=== PATIENT | female | born 1940 | race Caucasian/White ===

== ENCOUNTER 2018-01-01 08:15 | Emergency (ER) | payer MEDICARE, BC ==
--- NOTE | 2018-01-01 08:51 | EDM.PDOC ---
ED HPI GENERAL MEDICAL PROBLEM - General Chief Complaint: General Stated Complaint: DIZZY,NAUSEATED [id number] Time Seen by Provider: 01/01/18 08:38 Source of Information: Reports: Patient, Family, RN, RN Notes Reviewed History Limitations: Reports: No Limitations - History of Present Illness INITIAL COMMENTS - FREE TEXT/NARRATIVE: Pt to ER with her with c/o dizziness which she states began on Tuesday. She states she feels as if the room is spinning. Pt states nausea accompanies the dizziness. Pt states she has been told she has Meniere's and Vertigo in the past. 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 Patient states she is unsteady on a regular basis. She admits to some blurred vision with the dizziness. Patient denies a headache. Patient admits to some chest discomfort last night. Patient states she took Meclizine about 2am and she is unsure if it helped. Onset: Gradual Onset Date: 12/30/17 - Related Data Allergies Allergy/AdvReac Type Severity Reaction Status Date / Time tramadol Allergy Hallucinati Verified 02/25/16 05:16 ons Home Meds: Home Meds Carvedilol 12.5 mg PO BID 10/18/13 [History] Insulin Glarg,Human.Rec.Analog [Lantus Solostar] 39 units SQ BEDTIME 10/18/13 [ History] Losartan [Cozaar] 1 tab PO DAILY 10/18/13 [History] atorvaSTATin Calcium [Atorvastatin Calcium] 1 tab PO DAILY 10/18/13 [History] cycloSPORINE, Modified [Cyclosporine Modified] 50 mg PO BID 10/18/13 [History] Albuterol Sulfate 1 inh INH QID PRN 02/25/16 [History] Albuterol Sulfate [Proair Hfa] 2 inh INH Q4H PRN 02/25/16 [History] Albuterol/Ipratropium [Combivent Respimat] 1 applic INH BID 02/25/16 [History] Aspirin 1 tab PO DAILY 02/25/16 [History] Fluticasone Propionate [Flovent] 1 inh INH DAILY 02/25/16 [History] Fluticasone/Salmeterol [Advair Diskus 500-50] 1 inh INH BID 02/25/16 [History] Folic Acid 1 tab PO DAILY 02/25/16 [History] amLODIPine [Norvasc] 1 tab PO DAILY 02/25/16 [History] Ascorbic Acid [Vitamin C] 500 mg PO BID 01/01/18 [History] Carbidopa/Levodopa [Carbidopa-Levo ER 25-100] 1 tab PO BEDTIME 01/01/18 [History ] Cranberry 500 mg PO BID 01/01/18 [History] Docusate Sodium [Colace] 100 mg PO BID PRN 01/01/18 [History] Ergocalciferol (Vitamin D2) [Vitamin D2] 50,000 units PO WEEKLY 01/01/18 [ History] Meclizine [Antivert] 25 mg PO DAILY PRN 01/01/18 [History] Umeclidinium [place] [Incruse Ellipta*] 1 puff INH DAILY 01/01/18 [History] Vitamin B6-pyridOXINE 250 mg PO DAILY 01/01/18 [History] Past Medical History Cardiovascular History: Reports: CAD, High Cholesterol, Hypertension Respiratory History: Reports: Asthma Gastrointestinal History: Reports: GERD Endocrine/Metabolic History: Reports: Diabetes, Type II Hematologic History: Reports: Folic Acid - Past Surgical History Cardiovascular Surgical History: Reports: Coronary Artery Bypass Social & Family History - Tobacco Use Smoking Status *Q: Never Smoker - Caffeine Use Caffeine Use: Reports: Coffee - Recreational Drug Use Recreational Drug Use: No ED ROS GENERAL - Review of Systems Review Of Systems: ROS reveals no pertinent complaints other than HPI. ED EXAM, GENERAL - Physical Exam Exam: See Below Exam Limited By: No Limitations General Appearance: Alert, WD/WN, No Apparent Distress Eye Exam: Bilateral Eye: EOMI, Normal Inspection Ears: Normal External Exam, Hearing Grossly Normal Ear Exam: Bilateral Ear: Auricle Normal, Canal Normal, TM normal Nose: Normal Inspection Throat/Mouth: Normal Inspection, Normal Voice, No Airway Compromise Head: Atraumatic, Normocephalic, Facial Tenderness (forehead, frontal sinuses) Neck: Normal Inspection, Supple, Non-Tender, Full Range of Motion Respiratory/Chest: No Respiratory Distress, Normal Breath Sounds, No Accessory Muscle Use, Chest Non-Tender, Decreased Breath Sounds Cardiovascular: Normal Peripheral Pulses, Regular Rate, Rhythm, No Edema, No Gallop, No JVD, No Murmur, No Rub Peripheral Pulses: 2+: Radial (L), Radial (R) GI/Abdominal: Normal Bowel Sounds, Soft, Non-Tender (Female) Exam: Deferred Rectal (Female) Exam: Deferred Back Exam: Normal Inspection, Decreased Range of Motion Extremities: Normal Inspection, Non-Tender, Normal Capillary Refill, Pedal Edema (+1-2), Limited Range of Motion Neurological: Alert, Oriented, CN II-XII Intact, Normal Cognition, No Motor/ Sensory Deficits Psychiatric: Normal Affect, Normal Mood Skin Exam: Warm, Dry, Intact, Normal Color, No Rash Lymphatic: No Adenopathy EKG INTERPRETATION EKG Date: 01/01/18 Time: 08:46 Rhythm: Other (sinus rhythm, supraventricular bigeminy, borderline T abnormalities) Rate (Beats/Min): 59 P-Wave: Present QRS: Normal Comparison: No Change Course - Vital Signs Last Recorded V/S: Last Vital Signs Temp 97.6 F 01/01/18 08:22 Pulse 65 01/01/18 08:22 Resp 16 01/01/18 08:22 BP 143/70 H 01/01/18 09:05 Pulse Ox 97 01/01/18 09:05 - Orders/Labs/Meds Orders: Active Orders 24 hr Category Date Time Status EKG Documentation Completion [RC] STAT Care 01/01/18 08:46 Active Labs: Laboratory Tests 01/01/18 01/01/18 01/01/18 Range/Units 08:56 08:56 09:05 WBC 8.7 (5.0-10.0) 10^3/uL RBC 3.85 L (4.2-5.4) 10^6/uL Hgb 11.9 L (12.0-16.0) g/dL Hct 37.2 (37.0-47.0) % MCV 96.6 D (80-100) fL MCH 30.9 (27.0-34.0) pg MCHC 32.0 L (33.0-35.0) g/dL Plt Count 217 (150-450) 10^3/uL Neut % (Auto) 65.6 (42.2-75.2) % Lymph % (Auto) 26.9 (20.5-50.1) % [place] % (Auto) 5.4 (2-8) % Eos % (Auto) 1.9 (1.0-3.0) % Baso % (Auto) 0.2 (0.0-1.0) % Sodium 140 (135-145) mmol/L Potassium 3.9 (3.6-5.0) mmol/L Chloride 108 (101-111) mmol/L Carbon Dioxide 22.0 (21.0-31.0) mmol/L Anion Gap 13.9 BUN 31 H (7-18) mg/dL Creatinine 1.4 H (0.6-1.3) mg/dL Est Cr Clr Drug Dosing 24.55 mL/min Estimated GFR (MDRD) 37 BUN/Creatinine Ratio 22.14 Glucose 137 H (74-105) mg/dL Calcium 9.2 (8.4-10.2) mg/dl Total Bilirubin 0.8 (0.2-1.0) mg/dL AST 23 (10-42) IU/L ALT 15 (10-60) IU/L Alkaline Phosphatase 78 (42-121) IU/L Troponin I < 0.02 (0.00-0.02) ng/ml Total Protein 7.4 (6.7-8.2) g/dl Albumin 3.5 (3.2-5.5) g/dl Globulin 3.9 Albumin/Globulin Ratio 0.90 Urine Color Yellow (YELLOW) Urine Appearance Clear (CLEAR) Urine pH 6.0 (5.0-9.0) Ur Specific [place] 1.015 (1.005-1.030) Urine Protein 100 H (NEGATIVE) Urine Glucose (UA) Negative (NEGATIVE) Urine Ketones Negative (NEGATIVE) Urine Occult Blood Small H (NEGATIVE) Urine Nitrite Negative (NEGATIVE) Urine Bilirubin Negative (NEGATIVE) Urine Urobilinogen 0.2 (0.2-1.0) mg/dL Ur Leukocyte Esterase Negative (NEGATIVE) Urine RBC 0-5 /HPF Urine WBC 0-5 (0-5/HPF) /HPF Ur Epithelial Cells Few /HPF Urine Bacteria Not seen (0-FEW/HPF) /HPF Urine Mucus Rare /LPF Departure - Departure Time of Disposition: 09:40 Disposition: Home, Self-Care 01 Condition: Fair Clinical Impression: Vertigo Sinusitis Qualifiers: Sinusitis location: frontal Chronicity: acute Recurrence: non-recurrent Qualified Code(s): J01.10 - Acute frontal sinusitis, unspecified - Discharge Information *PRESCRIPTION DRUG MONITORING PROGRAM REVIEWED*: No *COPY OF PRESCRIPTION DRUG MONITORING REPORT IN PATIENT RENE: No Instructions: Vertigo, [id number], Sinusitis, Adult, [id number], Dizziness , [id number] Forms: ED Department Discharge Additional Instructions: [place] MAR over the counter. Take as directed Drink plenty of water Call for a physical therapy appointment, as if you can take the Meclizine if you are not able to get in right away. Return to the ER with any further problems Follow up with your primary care facility - My Orders Last 24 Hours: My Active Orders 01/01/18 08:46 EKG Documentation Completion [RC] STAT - Assessment/Plan Last 24 Hours: My Active Orders 01/01/18 08:46 EKG Documentation Completion [RC] STAT
[2018-01-01 09:06] VITALS: BP 143/70
[2018-01-01 09:23] LABS: ANION GAP 13.9; CHLORIDE,CL 108 mmol/L (101-111); SODIUM,NA 140 mmol/L (135-145)
== END 2018-01-01 09:54 | disposition home or self-care (01) ==
LOC: DL.ED 08:15
DX: R42 Dizziness and giddiness (principal); J01.10 Acute frontal sinusitis, unspecified; I10 Essential (primary) hypertension; E11.9 Type 2 diabetes mellitus without complications; Z79.82 Long term (current) use of aspirin; Z79.899 Other long term (current) drug therapy; Z95.1 Presence of aortocoronary bypass graft; J45.909 Unspecified asthma, uncomplicated; Z79.4 Long term (current) use of insulin; Z88.5 Allergy status to narcotic agent
CPT/HCPCS: 36415; 80053; 81001; 84484; 85025; 93005; 99284

== ENCOUNTER 2019-09-30 15:44 | Emergency (ER) | payer MEDICARE, BC ==
[2019-09-30] MEDS ORDERED: Cyclobenzaprine 10 MG Tab PO ONE (15:45)
[2019-09-30 15:58] VITALS: BP 191/82; PULSE 68
[2019-09-30 17:01] LABS: ANION GAP 12.7 mEq/L (7-13)
--- NOTE | 2019-09-30 17:14 | CT ---
PROCEDURE INFORMATION: Exam: CT Lumbar Spine Without Contrast Exam date and time: 09/30/2019 4:54 PM Age: 79 years old Clinical indication: Other: Right sided pain, started after riding on bumpy road; Additional info: Pain lateral, hurts to step, TECHNIQUE: Imaging protocol: Computed tomography images of the lumbar spine without contrast. Radiation optimization: All CT scans at this facility use at least one of these dose optimization techniques: automated exposure control; mA and/or kV adjustment per patient size (includes targeted exams where dose is matched to clinical indication); or iterative reconstruction. COMPARISON: MR Lumbar Spine Comp wo Cont 02/14/2019 10:52 AM FINDINGS: Vertebrae: No acute skeletal pathology. Mild multilevel degenerative changes of the spine, as manifested by multilevel anterior osteophytes and multilevel decrease in intervertebral disc space. No acutely displaced fracture or dislocation. Grade 1 anterolisthesis of L4 in relation to L5, degenerative in etiology. There is diffuse facet joint hypertrophy appreciated. Discs/Spinal canal/Neural foramina: Mild posterior disc bulging at L2-L3, causing mild bilateral neural foraminal stenosis and no significant central canal stenosis. Mild posterior disc bulging at L3-L4, causing moderate left neural foraminal stenosis, mild right neural foraminal stenosis, and no significant central canal stenosis. Prominent posterior disc bulging at L4-L5, causing severe bilateral neural foraminal stenosis and no significant central canal stenosis. Vasculature: The vasculature demonstrates diffuse moderate atherosclerotic calcification. Soft tissues: No acute soft tissue findings. IMPRESSION: 1. Negative for acute skeletal pathology. 2. Multilevel degenerative disease, as detailed above.
--- NOTE | 2019-09-30 17:39 | EDM.PDOC ---
Scribed by Ginny Stuart 09/30/19 [id number] for Jailyn Vick PA-C ED HPI GENERAL MEDICAL PROBLEM - General Chief Complaint: Back Pain or Injury Stated Complaint: RIGHT SIDE OF BACK SHOOTING PAIN Time Seen by Provider: 09/30/19 16:07 Source of Information: Reports: Patient, RN, RN Notes Reviewed History Limitations: Reports: No Limitations - History of Present Illness INITIAL COMMENTS - FREE TEXT/NARRATIVE: c/o low right back pain this afternoon after riding on bumpy gravel road, spasm type. Tried tylenol one time and didn't seem to help. no prior back injury, has had intermittent back pain. No fever or chills. No weakness or incontinence. pain worse with weightbearing, to right leg. normally uses walker or cane for ambulation Right Flank Pain Score (Numeric/FACES): 8 - Related Data Allergies Allergy/AdvReac Type Severity Reaction Status Date / Time tramadol Allergy Hallucinati Verified 09/30/19 15:48 ons Home Meds: Home Meds Insulin Glarg,Human.Rec.Analog [Lantus Solostar] 39 units SQ BEDTIME 10/18/13 [History] Losartan [Cozaar] 1 tab PO DAILY 10/18/13 [History] atorvaSTATin Calcium [Atorvastatin Calcium] 1 tab PO DAILY 10/18/13 [History] carvediloL [Carvedilol] 12.5 mg PO BID 10/18/13 [History] cycloSPORINE, Modified [Cyclosporine Modified] 50 mg PO BID 10/18/13 [History] Albuterol Sulfate 1 inh INH QID PRN 02/25/16 [History] Albuterol Sulfate [Proair Hfa] 2 inh INH Q4H PRN 02/25/16 [History] Albuterol/Ipratropium [Combivent Respimat] 1 applic INH BID 02/25/16 [History] Aspirin 1 tab PO DAILY 02/25/16 [History] Fluticasone Propionate [Flovent] 1 inh INH DAILY 02/25/16 [History] Fluticasone/Salmeterol [Advair Diskus 500-50] 1 inh INH BID 02/25/16 [History] Folic Acid 1 tab PO DAILY 02/25/16 [History] amLODIPine [Norvasc] 1 tab PO DAILY 02/25/16 [History] Ascorbic Acid [Vitamin C] 500 mg PO BID 01/01/18 [History] Carbidopa/Levodopa [Carbidopa-Levo ER 25-100] 1 tab PO BEDTIME 01/01/18 [History] Cranberry 500 mg PO BID 01/01/18 [History] Docusate Sodium [Colace] 100 mg PO BID PRN 01/01/18 [History] Ergocalciferol (Vitamin D2) [Vitamin D2] 50,000 units PO WEEKLY 01/01/18 [History] Meclizine [Antivert] 25 mg PO DAILY PRN 01/01/18 [History] Umeclidinium [place] [Incruse Ellipta*] 1 puff INH DAILY 01/01/18 [History] Vitamin B6-pyridOXINE 250 mg PO DAILY 01/01/18 [History] Past Medical History Cardiovascular History: Reports: CAD, High Cholesterol, Hypertension Respiratory History: Reports: Asthma Gastrointestinal History: Reports: GERD Endocrine/Metabolic History: Reports: Diabetes, Type II Hematologic History: Reports: Folic Acid - Past Surgical History Cardiovascular Surgical History: Reports: Coronary Artery Bypass Social & Family History - Tobacco Use Smoking Status *Q: Never Smoker - Caffeine Use Caffeine Use: Reports: Coffee ED ROS GENERAL - Review of Systems Review Of Systems: Comprehensive ROS is negative, except as noted in HPI. ED EXAM,LOWER BACK PAIN/INJURY - Physical Exam Exam: See Below Exam Limited By: No Limitations General Appearance: Alert, No Apparent Distress, Anxious Eye Exam: Bilateral Eye: EOMI Ears: Normal External Exam Nose: Normal Inspection Throat/Mouth: Normal Inspection Head: Atraumatic, Normocephalic Neck: Normal Inspection Respiratory/Chest: No Respiratory Distress, Lungs Clear, Normal Breath Sounds Cardiovascular: Normal Peripheral Pulses, Regular Rate, Rhythm GI/Abdominal: Normal Bowel Sounds, Soft Extremities: Normal Range of Motion Neurological: Alert, Normal Dorsiflexion, Normal Plantar Flexion, Oriented x 3, Other (spasm to right low with turning. ). No: Straight Leg Raise (L), Straight Leg Raise (R) Psychiatric: Normal Affect Skin Exam: Warm, Dry, Intact, Normal Color Course - Vital Signs Last Recorded V/S: Last Vital Signs Temp 98.5 F 09/30/19 15:57 Pulse 68 09/30/19 15:57 Resp 18 09/30/19 15:57 BP 191/82 H 09/30/19 15:57 Pulse Ox 95 09/30/19 15:57 - Orders/Labs/Meds Labs: Laboratory Tests 09/30/19 09/30/19 09/30/19 Range/Units 16:37 16:37 17:01 WBC 9.3 (5.0-10.0) 10^3/uL RBC 3.85 L (4.2-5.4) 10^6/uL Hgb 11.8 L (12.0-16.0) g/dL Hct 36.6 L (37.0-47.0) % MCV 95.1 (80-100) fL MCH 30.6 (27.0-34.0) pg MCHC 32.2 L (33.0-35.0) g/dL Plt Count 217 (150-450) 10^3/uL Neut % (Auto) 64.7 (42.2-75.2) % Lymph % (Auto) 27.5 (20.5-50.1) % [place] % (Auto) 5.5 (2-8) % Eos % (Auto) 2.0 (1.0-3.0) % Baso % (Auto) 0.3 (0.0-1.0) % Sodium 141 (136-145) mmol/L Potassium 3.7 (3.5-5.1) mmol/L Chloride 105 (98-107) mmol/L Carbon Dioxide 27 (21-32) mmol/L Anion Gap 12.7 (7-13) mEq/L BUN 37 H (7-18) mg/dL Creatinine 1.93 H (0.55-1.02) mg/dL Est Cr Clr Drug Dosing 17.26 mL/min Estimated GFR (MDRD) 25 BUN/Creatinine Ratio 19.2 (No establ ref range) Glucose 161 H (74-99) mg/dL Calcium 8.7 (8.5-10.1) mg/dL Total Bilirubin 0.5 (0.2-1.0) mg/dL AST 18 (15-37) U/L ALT 25 (14-59) U/L Alkaline Phosphatase 87 (46-116) U/L Total Protein 6.6 (6.4-8.2) g/dL Albumin 2.8 L (3.4-5.0) g/dL Globulin 3.8 Albumin/Globulin Ratio 0.74 Urine Color Light yellow (YELLOW) Urine Appearance Clear (CLEAR) Urine pH 6.5 (5.0-9.0) Ur Specific [place] 1.020 (1.005-1.030) Urine Protein >=300 H (NEGATIVE) Urine Glucose (UA) Negative (NEGATIVE) Urine Ketones Negative (NEGATIVE) Urine Occult Blood Small H (NEGATIVE) Urine Nitrite Negative (NEGATIVE) Urine Bilirubin Negative (NEGATIVE) Urine Urobilinogen 0.2 (0.2-1.0) mg/dL Ur Leukocyte Esterase Negative (NEGATIVE) Urine RBC 5-10 H /HPF Urine WBC 0-5 (0-5/HPF) /HPF Ur Epithelial Cells Rare (NOT SEEN) /HPF Amorphous Sediment Rare (NOT SEEN) /HPF Urine Bacteria Rare (0-FEW/HPF) /HPF Urine Mucus Rare (NOT SEEN) /LPF Departure - Departure Time of Disposition: 17:36 Disposition: Home, Self-Care 01 Condition: Good Clinical Impression: Muscle spasm Back pain Qualifiers: Back pain location: low back pain Chronicity: acute Back pain laterality: right Sciatica presence: without sciatica Qualified Code(s): M54.5 - Low back pain - Discharge Information *PRESCRIPTION DRUG MONITORING PROGRAM REVIEWED*: No *COPY OF PRESCRIPTION DRUG MONITORING REPORT IN PATIENT RENE: No Instructions: Muscle Strain, [id number] Forms: ED Department Discharge Additional Instructions: flexeril 5mg every 12 hours as needed for pain alternate ice and heat to low lalit tylenol 650mg every 6 hours as needed for discomfort clinic follow up this week use walker for balance lidocaine patch to right low back on 12 hours then off 12 hours Sepsis Event Note (ED) - Evaluation Sepsis Screening Result: No Definite Risk - Focused Exam Vital Signs: Vital Signs Temp Pulse Resp BP Pulse Ox 09/30/19 15:57 98.5 F 68 18 191/82 H 95 I have read and agree with the documentation that has been completed regarding this visit. By signing this record, I attest that the documentation was completed in my physical presence and is an accurate record of the encounter.
[2019-09-30] MEDS ORDERED: Cyclobenzaprine 10 MG Tab ONE (17:42)
== END 2019-09-30 17:45 | disposition home or self-care (01) ==
LOC: DL.ED 15:44
DX: M62.830 Muscle spasm of back (principal); I25.10 Atherosclerotic heart disease of native coronary artery without angina pectoris; E78.00 Pure hypercholesterolemia, unspecified; I10 Essential (primary) hypertension; J45.909 Unspecified asthma, uncomplicated; E11.9 Type 2 diabetes mellitus without complications; Z79.4 Long term (current) use of insulin; Z79.82 Long term (current) use of aspirin; Z79.899 Other long term (current) drug therapy; Z88.5 Allergy status to narcotic agent
CPT/HCPCS: 36415; 72131; 80053; 81001; 85025; 99284; A9270; 99283

== ENCOUNTER 2022-03-16 21:40 | Emergency (ER) | payer MEDICARE, BC ==
[2022-03-16] MEDS ORDERED: Sodium Chloride 0.9% 10 ML Syringe FLUSH PRN (22:00)
[2022-03-16 22:24] VITALS: BP 129/69; PULSE 89
[2022-03-16] MEDS ORDERED: Magnesium Sulfate/Water 2 GM in Premix Bag 1 BAG IV ONE (23:15)
[2022-03-16 23:44] LABS: CORONAVIRUS COVID-19 NAA NEGATIVE (NEGATIVE)
[2022-03-17] MEDS ORDERED: Sodium Chloride 0.9% 500 ML IV ONE
== END 2022-03-17 01:03 | disposition home or self-care (01) ==
LOC: DL.ED 21:40
DX: I49.9 Cardiac arrhythmia, unspecified (principal); E83.42 Hypomagnesemia; R94.6 Abnormal results of thyroid function studies; I25.10 Atherosclerotic heart disease of native coronary artery without angina pectoris; E78.00 Pure hypercholesterolemia, unspecified; J44.9 Chronic obstructive pulmonary disease, unspecified; I12.9 Hypertensive chronic kidney disease with stage 1 through stage 4 chronic kidney disease, or unspecified chronic kidney disease; N18.30 Chronic kidney disease, stage 3 unspecified; Z88.5 Allergy status to narcotic agent; Z79.899 Other long term (current) drug therapy; Z79.82 Long term (current) use of aspirin; Z95.1 Presence of aortocoronary bypass graft; Z20.822 Contact with and (suspected) exposure to COVID-19
CPT/HCPCS: 0240U; 36415; 71045; 80053; 83735; 84443; 84484; 85025; 85610; 86140; 93005; 96361; 96365; 99285; J3475; J7040

== ENCOUNTER 2022-12-20 13:42 | Emergency (ER) | payer MEDICARE, BC ==
[2022-12-20] MEDS ORDERED: Sodium Chloride 0.9% 10 ML Syringe FLUSH PRN (13:55)
[2022-12-20 14:08] LABS: HEMATOCRIT 34.7 % (37.0-47.0); HEMOGLOBIN 11.2 g/dL (12.0-16.0); MEAN CORPUSCULAR HEMOGLOBIN 31.2 pg (27.0-34.0); MEAN CORPUSCULAR HGB CONC 32.3 g/dL (33.0-35.0); MEAN CORPUSCULAR VOLUME 96.7 fL (80-100); PLATELET COUNT,PLT 231 10^3/uL (150-450); RED BLOOD CELL COUNT 3.59 10^6/uL (4.2-5.4)
[2022-12-20 14:17] LABS: BASOPHILS PERCENT AUTO 0.4 % (0.0-1.0); EOSINOPHILS PERCENT AUTO 2.5 % (1.0-3.0); LYMPHOCYTES PERCENT AUTO 25.8 % (20.5-50.1); MONOCYTES PERCENT AUTO 4.4 % (2-8); NEUTROPHILS PERCENT AUTO 66.9 % (42.2-75.2)
[2022-12-20 14:24] VITALS: BP 143/60; PULSE 65
[2022-12-20 14:30] LABS: A/G RATIO 0.8; ALANINE AMINOTRANSFERASE,ALT 20 U/L (14-59); ALBUMIN 3.4 g/dL (3.4-5.0); ALKALINE PHOSPHATASE 93 U/L (46-116); ANION GAP 15.4 mEq/L (7-13); ASPARTATE AMNIOTRANSFERASE,AST 19 U/L (15-37); BILIRUBIN TOTAL 0.5 mg/dL (0.2-1.0); BLOOD UREA NITROGEN,BUN 45 mg/dL (7-18); BUN/CREATININE RATIO 20.9 (No establ ref range); C-REACTIVE PROTEIN 0.17 ng/dL (<=0.30); CALCIUM 9.3 mg/dL (8.5-10.1); CARBON DIOXIDE,CO2 25 mmol/L (21-32); CHLORIDE,CL 105 mmol/L (98-107); CREATININE 2.15 mg/dL (0.55-1.02); EST CRCL DRUG DOSING (CG) 14.74 mL/min; ESTIMATED GFR 23 mL/min (>=60); GLUCOSE RANDOM 147 mg/dL (70-99); MAGNESIUM 1.7 mg/dL (1.8-2.4); POTASSIUM,K 4.4 mmol/L (3.5-5.1); PROTEIN TOTAL,TP 7.7 g/dL (6.4-8.2); SODIUM,NA 141 mmol/L (136-145)
[2022-12-20 14:31] LABS: LACTIC ACID 1.5 mmol/L (0.4-2.0)
[2022-12-20 14:33] LABS: PROTHROMBIN TIME 9.9 SEC (9.0-12.0)
[2022-12-20] MEDS ORDERED: Promethazine 25 MG/ML SDV IM ONE (14:38)
[2022-12-20 14:41] LABS: BAND PERCENT MAN 5 %; EOSINOPHILS PERCENT MAN 4 % (1-3); LYMPHOCYTES PERCENT MAN 18 % (20-50); MONOCYTES PERCENT MAN 3 % (2-8); SEG NEUTROPHILS PERCENT MAN 70 % (42-75)
[2022-12-20 14:59] LABS: PTT,PARTIAL THROMBOPLSTIN TIME 26.7 SEC (22.0-34.0)
[2022-12-20 15:27] LABS: APPEARANCE,URINE CLEAR (CLEAR); BILIRUBIN,URINE NEGATIVE (NEGATIVE); COLOR,URINE YELLOW (YELLOW); GLUCOSE,URINE NEGATIVE (NEGATIVE); KETONES,URINE NEGATIVE (NEGATIVE); LEUKOCYTE ESTERASE,URINE TRACE (NEGATIVE); NITRITE,URINE NEGATIVE (NEGATIVE); OCCULT BLOOD,URINE TRACE-INTACT (NEGATIVE); PROTEIN,URINE 100 (NEGATIVE); UROBILINOGEN,URINE 0.2 mg/dL (0.2-1.0)
[2022-12-20 16:06] LABS: BACTERIA,URINE MANY /HPF (0-FEW/HPF); EPITHELIAL CELLS,URINE FEW /HPF (NOT SEEN); RBC,URINE 0-5 /HPF (0-5)
[2022-12-20] MEDS ORDERED: Sodium Chloride 0.9% 500 ML IV SCH (16:15)
== END 2022-12-20 16:54 | disposition home or self-care (01) ==
LOC: DL.ED 13:42
DX: R42 Dizziness and giddiness (principal); N39.0 Urinary tract infection, site not specified; I25.10 Atherosclerotic heart disease of native coronary artery without angina pectoris; E78.00 Pure hypercholesterolemia, unspecified; J44.9 Chronic obstructive pulmonary disease, unspecified; I12.9 Hypertensive chronic kidney disease with stage 1 through stage 4 chronic kidney disease, or unspecified chronic kidney disease; E11.22 Type 2 diabetes mellitus with diabetic chronic kidney disease; N18.9 Chronic kidney disease, unspecified; Z95.5 Presence of coronary angioplasty implant and graft; Z88.5 Allergy status to narcotic agent; Z88.8 Allergy status to other drugs, medicaments and biological substances; Z79.4 Long term (current) use of insulin; Z79.82 Long term (current) use of aspirin; Z79.899 Other long term (current) drug therapy
CPT/HCPCS: 36415; 71045; 80053; 81001; 83605; 83735; 84145; 85025; 85610; 85730; 86140; 87086; 87088; 87186; 87804; 93005; 96372; 99285; J2550; J7040; U0002; J3490

== ENCOUNTER 2023-10-16 23:01 | Emergency (ER) | payer MEDICARE, BC ==
[2023-10-16 23:42] LABS: BASOPHILS PERCENT AUTO 0.3 % (0.0-1.0); EOSINOPHILS PERCENT AUTO 2.4 % (1.0-3.0); HEMATOCRIT 38.7 % (37.0-47.0); HEMOGLOBIN 12.4 g/dL (12.0-16.0); LYMPHOCYTES PERCENT AUTO 33.4 % (20.5-50.1); MEAN CORPUSCULAR HEMOGLOBIN 30.9 pg (27.0-34.0); MEAN CORPUSCULAR VOLUME 96.5 fL (80-100); MONOCYTES PERCENT AUTO 5.7 % (2-8); NEUTROPHILS PERCENT AUTO 58.2 % (42.2-75.2); PLATELET COUNT,PLT 238 10^3/uL (150-450); RED BLOOD CELL COUNT 4.01 10^6/uL (4.2-5.4); WHITE BLOOD CELL COUNT,WBC 9.8 10^3/uL (5.0-10.0)
[2023-10-16 23:49] VITALS: BP 153/86; PULSE 78
[2023-10-17 00:01] LABS: INR 0.9 (0.9-1.2); PROTHROMBIN TIME 9.8 SEC (9.0-12.0)
[2023-10-17 00:05] LABS: A/G RATIO 0.72; ALBUMIN 3.1 g/dL (3.4-5.0); ANION GAP 15.1 mEq/L (7-13); BILIRUBIN TOTAL 0.3 mg/dL (0.2-1.0); BUN/CREATININE RATIO 19.2 (No establ ref range); CALCIUM 9.1 mg/dL (8.5-10.1); CREATININE 2.65 mg/dL (0.55-1.02); EST CRCL DRUG DOSING (CG) 11.76 mL/min; MAGNESIUM 1.7 mg/dL (1.8-2.4); POTASSIUM,K 4.1 mmol/L (3.5-5.1); PROTEIN TOTAL,TP 7.4 g/dL (6.4-8.2)
[2023-10-17] MEDS: Sodium Chloride 0.9% 500 ML IV ONE (00:16)
[2023-10-17] MEDS: Magnesium Sulfate/D5W 1 GM/100 ML BAG IV ONE (00:28)
== END 2023-10-17 01:41 | disposition home or self-care (01) ==
LOC: DL.ED 23:01
DX: I49.1 Atrial premature depolarization (principal); E83.42 Hypomagnesemia; I25.10 Atherosclerotic heart disease of native coronary artery without angina pectoris; I12.9 Hypertensive chronic kidney disease with stage 1 through stage 4 chronic kidney disease, or unspecified chronic kidney disease; N18.4 Chronic kidney disease, stage 4 (severe); E11.22 Type 2 diabetes mellitus with diabetic chronic kidney disease; E78.00 Pure hypercholesterolemia, unspecified; J44.9 Chronic obstructive pulmonary disease, unspecified; Z95.1 Presence of aortocoronary bypass graft; Z90.49 Acquired absence of other specified parts of digestive tract; Z79.899 Other long term (current) drug therapy; Z79.4 Long term (current) use of insulin; Z79.82 Long term (current) use of aspirin; Z88.5 Allergy status to narcotic agent; Z88.8 Allergy status to other drugs, medicaments and biological substances
CPT/HCPCS: 36415; 80053; 83735; 84484; 85025; 85610; 93005; 96365; 99285; J3475; J7040; 93010; 99284

== ENCOUNTER 2024-02-11 04:07 | Emergency (ER) | payer MEDICARE, BC ==
[2024-02-11 05:30] LABS: APPEARANCE,URINE CLEAR (CLEAR); BILIRUBIN,URINE NEGATIVE (NEGATIVE); COLOR,URINE YELLOW (YELLOW); GLUCOSE,URINE NEGATIVE (NEGATIVE); KETONES,URINE NEGATIVE (NEGATIVE); LEUKOCYTE ESTERASE,URINE MODERATE (NEGATIVE); NITRITE,URINE NEGATIVE (NEGATIVE); OCCULT BLOOD,URINE SMALL (NEGATIVE); PROTEIN,URINE 100 (NEGATIVE); UROBILINOGEN,URINE 0.2 mg/dL (0.2-1.0)
[2024-02-11 05:46] LABS: BACTERIA,URINE MANY /HPF (0-FEW/HPF); EPITHELIAL CELLS,URINE FEW /HPF (NOT SEEN); WBC,URINE 30-40 /HPF (0-5/HPF)
[2024-02-11 06:05] VITALS: BP 144/66; PULSE 62
== END 2024-02-11 06:41 | disposition home or self-care (01) ==
LOC: DL.ED 04:07
DX: I12.0 Hypertensive chronic kidney disease with stage 5 chronic kidney disease or end stage renal disease (principal); N18.6 End stage renal disease; R82.71 Bacteriuria; I25.10 Atherosclerotic heart disease of native coronary artery without angina pectoris; E11.22 Type 2 diabetes mellitus with diabetic chronic kidney disease; E11.42 Type 2 diabetes mellitus with diabetic polyneuropathy; J44.89 Other specified chronic obstructive pulmonary disease; E78.00 Pure hypercholesterolemia, unspecified; Z86.16 Personal history of COVID-19; Z90.49 Acquired absence of other specified parts of digestive tract; Z95.5 Presence of coronary angioplasty implant and graft; Z88.5 Allergy status to narcotic agent; Z88.8 Allergy status to other drugs, medicaments and biological substances; Z79.890 Hormone replacement therapy; Z79.4 Long term (current) use of insulin; Z79.51 Long term (current) use of inhaled steroids; Z79.82 Long term (current) use of aspirin; Z79.899 Other long term (current) drug therapy; Z99.2 Dependence on renal dialysis
CPT/HCPCS: 81001; 87086; 87088; 87186; 99283; 99284